=== PATIENT | female | born 1945 | race Caucasian/White ===

== ENCOUNTER 2017-04-30 12:49 | Outpatient (CLI) | payer MEDICARE, OTHER ==
[2015-05-13 11:42] VITALS: BP 125/70
--- NOTE | 2017-04-30 14:37 | Diagnostic Imaging Report ---
[facility] [address] [facility] [address] [address] Report Submission Date: Apr 30, 2017 1:34:03 PM CDT Patient Study Name: ELISHA BAÑUELOS Date: Apr 30, 2017 12:57:08 PM CDT Modality Type: CR Gender: F Description: CHEST : 43 Institution: Physician: GISELL Examination: PA and lateral chest. History: Evaluate lung scott. Findings: PA lateral chest demonstrate a hypoventilated inspiratory effort. Mild prominence of the cardiac and mediastinal with tortuosity of the thoracic aorta. Linear densities right lower lung. No effusion. No blunting of the costophrenic margins. Osseous structures are appropriate for age. 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 Impression: Right lung base scarring versus atelectasis. No effusion Electronically signed on Apr 30, 2017 1:34:03 PM CDT by: Hesham HURTADO
== END 2017-04-30 12:50 ==
LOC: RAD 12:49
PROVIDERS: ATTEND Family Medicine
DX: R06.00 Dyspnea, unspecified (principal)
CPT/HCPCS: 71020

== ENCOUNTER 2018-06-03 19:04 | Emergency (ER) | payer MEDICARE, OTHER ==
--- NOTE | 2018-06-03 19:18 | ED Physician Documentation ---
General Adult - HISTORIAN Historian: patient - HPI Stated Complaint: fall, head lac and hip pain Chief Complaint: Fall Onset: minutes (45) Timing: still present Severity: mild Further Comments: yes (per [facility] report no witness to the fall and they did find her on her left side and she was complaining of hip pain and head pain. She states that she fell after hearing a sound that made her jumpy. She states her left hip hurts and her head . She denies any other complaints) Last known Well Code/Unknown Code: Unknown - ROS CONST: no problems EYES/ENT: none CVS/RESP: none GI/: none MS/SKIN/LYMPH: none NEURO/PSYCH: headache. denies: fainting, dizziness - PAST HX Past History: other (history of a brain bleed, dementia, hypertension, hydorcephalus, hyperlipidemia, COPD ) Immunizations: tetanus Allergies/Adverse Reactions: Allergies Allergy/AdvReac Type Severity Reaction Status Date / Time No Known Allergies Allergy Verified 06/03/18 19:36 Home Medications: Ambulatory Orders Medication Instructions Recorded Acetaminophen [Tylenol] 325 mg PO Q4H PRN #0 tablet 05/13/15 Aspirin [Tato] 81 mg PO DAILY tab.chew 05/13/15 - SOCIAL HX Smoking History: non-smoker Alcohol Use: none Drug Use: none - FAMILY HX Family History: No - VITAL SIGNS Vital Signs: Vital Signs Temp Pulse Resp BP Pulse Ox 125/70 05/13/15 07:58 - REVIEWED ASSESSMENTS Nursing Assessment Reviewed: Yes Vitals Reviewed: Yes Procedures Wound Location: head Wound's Depth, Shape: superficial Wound Explored: clean Wound Repaired With: Dermabond Layer Closure?: No (1 cm lac ) Progress - Progress Progress: 2039: results discussed with pt and brother and they understand the plan agreeable DG ED Results Lab/Radiology - Radiology Radiology Impressions: FINDINGS: Left frontal lobe encephalomalacia is present. A ventriculostomy catheter is in place from the right parietal bone with its tip between the frontal horns of the lateral ventricles. The lateral ventricles not appear enlarged. There is mild to moderate cerebral atrophy. 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 Cerebellar atrophy is present. There is a right temporoparietal craniotomy defect. Visualized sinuses and mastoid air cells are clear. Right temporal lobe encephalomalacia is present. IMPRESSION: Right suprasellar aneurysm clip Right craniotomy A ventriculostomy catheter present with the tip between the frontal horns of the lateral ventricles. This catheter is not clearly in the ventricular system at the tip but the ventricles are nonenlarged Left frontal encephalomalacia. Is also right temporal encephalomalacia Cerebral and cerebellar atrophy No evidence of acute hemorrhage or edema Electronically signed on Jun 03, 2018 8:28:34 PM CDT by: Zev Hartmann Examination: Plain film pelvis/hips History: FALL, PT COMPLAINS OF LEFT HIP PAIN, BRUISING (Hx) Comparison exams: None provided Findings: 5 views of the pelvis and hips demonstrate normal cortical margins. No fracture no dislocation. Mild acetabular spurring. Lumbar spine degenerative changes. No soft tissue abnormality. Impression: Mild degenerative changes. No acute appearing osseous abnormality. Electronically signed on Jun 03, 2018 8:27:57 PM CDT by: Hesham Jones - Orders Orders: ED Orders Category Date Time Status IV Started NOW Care 06/03/18 19:16 Ordered BILAT HIPS 2V (W/PEL IF DONE) [RAD] Stat Exams 06/03/[address] BRAIN W/O CONTRAST Stat Exams 06/03/18 Ordered CBC/PLATELET/DIFF Stat Lab 06/03/18 19:15 Ordered CMP Stat Lab 06/03/18 19:15 Ordered General Adult Physical Exam - PHYSICAL EXAM GENERAL APPEARANCE: no distress EENT: eye inspection normal, ENT inspection normal, KIRT NECK: normal inspection RESPIRATORY: no resp distress, chest non-tender, breath sounds normal CVS: reg rate & rhythm, heart sounds normal, equal pulses ABDOMEN: soft, normal bowel sounds, no distension, non-tender BACK: normal inspection SKIN: warm/dry, normal color, other (laceration on left scalp ) EXTREMITIES: other (rotation and shortness noted on right leg. Pain with palpation and interview on left hip ) NEURO: oriented X3, sensation nml, mood/affect nml Discharge Clincal Impression: head injury Fall Qualifiers: Encounter type: initial encounter Qualified Code(s): W19.XXXA - Unspecified fall, initial encounter Referrals: Hair Mace MD [Primary Care Provider] - 2 Days Comments: 1. Monitor for any changes in her level of consciousness 2. Tylenol or Ibuprofen for pain as needed 3. Ice to scalp 4. Notify PCP of fall 5. Return to ER for any concerns Condition: Stable Disposition: 01 HOME, SELF-CARE Decision to Admit: NO Date of Decison to Admit: 06/03/18 Decision Time: 20:43
[2018-06-03] MEDS ORDERED: KETOROLAC TROMETHAMINE 30 MG/1ML VIAL IM ONE (20:32)
[2018-06-03 21:44] VITALS: BP 124/44
[2018-06-03 23:23] LABS: BASOPHILS % 0.4 (0.0-1.5); EOSINOPHILS % 2.7 % (0.0-6.8); MEAN CORPUSCULAR HEMOGLOBIN 28.4 pg (28.0-34.0); MEAN CORPUSCULAR VOLUME 90.6 fl (80.0-100.0); MONOCYTES % 6.4 % (0.0-11.0)
[2018-06-03 23:25] LABS: eGFR (African) > 60; eGFR (Non-African) > 60
--- NOTE | 2018-06-04 06:36 | Diagnostic Imaging Report ---
JUANITO PARKS [facility] [address] [facility] [address] [place], [place]. [address] Report Submission Date: Jun 03, 2018 8:27:57 PM CDT Patient Study Name: ELISHA BAÑUELOS Date: Jun 03, 2018 7:34:53 PM CDT Modality Type: DX Gender: F Description: PELVIS : 43 Institution: [facility] Physician: JUANITO PARKS Examination: Plain film pelvis/hips History: FALL, PT COMPLAINS OF LEFT HIP PAIN, BRUISING (Hx) Comparison exams: None provided Findings: 5 views of the pelvis and hips demonstrate normal cortical margins. No fracture no dislocation. Mild acetabular spurring. Lumbar spine degenerative changes. No soft tissue abnormality. Impression: Mild degenerative changes. No acute appearing osseous abnormality. Electronically signed on Jun 03, 2018 8:27:57 PM CDT by: Hesham HURTADO
--- NOTE | 2018-06-04 06:37 | Diagnostic Imaging Report ---
JUANITO PARKS [facility] [address] [facility] [address] [place], [place]. [address] Report Submission Date: Jun 03, 2018 8:28:34 PM CDT Patient Study Name: ELISHA BAÑUELOS Date: Jun 03, 2018 7:33:06 PM CDT Modality Type: CT\SR Gender: F Description: CT BRAIN W/O CONTRAST : 43 Institution: [facility] Physician: JUANITO PARKS CT brain noncontrast Date of study: June 03, 2018 CLINICAL HISTORY: FALL, HEAD LACERATION ON LEFT POSTERIOR OF HEAD, ANEURYSM IN 1996 (Hx) / ITS.REASON Fall head lac Note time : 06/03/2018 9:00:17 PM User : Parth Parmar FALL, LACERATION (DICOM Hx) / ITS.REASON Fall rotation and shortening of right = pain left (Pt comments) TECHNIQUE: 5 mm contiguous axial images of the brain, noncontrast. FINDINGS: Left frontal lobe encephalomalacia is present. A ventriculostomy catheter is in place from the right parietal bone with its tip between the frontal horns of the lateral ventricles. The lateral ventricles not appear enlarged. There is mild to moderate cerebral atrophy. 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 Cerebellar atrophy is present. There is a right temporoparietal craniotomy defect. Visualized sinuses and mastoid air cells are clear. Right temporal lobe encephalomalacia is present. IMPRESSION: Right suprasellar aneurysm clip Right craniotomy A ventriculostomy catheter present with the tip between the frontal horns of the lateral ventricles. This catheter is not clearly in the ventricular system at the tip but the ventricles are nonenlarged Left frontal encephalomalacia. Is also right temporal encephalomalacia Cerebral and cerebellar atrophy No evidence of acute hemorrhage or edema Electronically signed on Jun 03, 2018 8:28:34 PM CDT by: Zev HURTADO
== END 2018-06-03 20:50 | disposition home or self-care (01) ==
LOC: ED 19:04
DX: M25.552 Pain in left hip (principal); S01.01XA Laceration without foreign body of scalp, initial encounter; W19.XXXA Unspecified fall, initial encounter; Y92.129 Unspecified place in nursing home as the place of occurrence of the external cause; Y93.9 Activity, unspecified; Y99.9 Unspecified external cause status
CPT/HCPCS: 70450; 73521; 80053; 85025; J1885; 12001; 96372; S1016

== ENCOUNTER 2019-06-10 07:00 | Outpatient (CLI) | payer MEDICARE, OTHER ==
[2019-06-10 09:23] LABS: BASOPHILS % 0.3 % (0.0-1.5); NEUTROPHILS # 2.4 # k/uL (1.4-7.7); eGFR (Non-African) > 60
== END 2019-06-10 07:03 ==
LOC: LAB 07:00
PROVIDERS: ATTEND Family Medicine
DX: I10 Essential (primary) hypertension (principal); D50.0 Iron deficiency anemia secondary to blood loss (chronic); G40.109 Localization-related (focal) (partial) symptomatic epilepsy and epileptic syndromes with simple partial seizures, not intractable, without status epilepticus
CPT/HCPCS: 80053; 80156; 80177; 83540; 85025

== ENCOUNTER 2019-06-24 07:20 | Outpatient (CLI) | payer MEDICARE, OTHER | END 2019-06-24 07:23 | LOC: LAB 07:20 | PROVIDERS: ATTEND Family Medicine | DX: I10 Essential (primary) hypertension (principal); G91.2 (Idiopathic) normal pressure hydrocephalus | CPT/HCPCS: 80156; 80177 ==

== ENCOUNTER 2019-11-08 09:52 | Emergency (ER) | payer MEDICARE, OTHER ==
--- NOTE | 2019-11-08 10:21 | ED Physician Documentation ---
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 RN at [facility] reports patient has had several episode of syncope over the past 2 days associated with low blood pressure. She had an episode today with a blood pressure reported of 70 systolic. shelter also reports dark stools the past several days. Patient has dementia and is a poor historian. Patient states "yes" when asked if she has chest pain, shortness of breath and abdominal pain, but she answers "yes" to all questions. 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 denies: visual disturbance, nausea Character of Events(s): became unresponsive Duration of Loss of Consciousness: seconds Symptoms after Event: denies: confused after event, incontinent of urine, breathing stopped Location of Injury: none Associated Symptoms: other (hypotension) - ROS CONST: denies: recent illness EYES/ENT: denies: none GI/: black stools MS/SKIN/LYMPH: denies: leg swelling, rash NEURO/PSYCH: confusion (dementia) - PAST HX Cardiac Disease: none PE Risk Factors: none Other History: aneurysm (brain) Surgeries/Procedures: none Allergies/Adverse Reactions: Allergies Allergy/AdvReac Type Severity Reaction Status Date / Time No Known Allergies Allergy Verified 11/08/19 11:58 Home Medications: Ambulatory Orders Medication Instructions Recorded Acetaminophen [Tylenol] 325 mg PO Q4H PRN #0 tablet 05/13/15 Aspirin [Tato] 81 mg PO DAILY tab.chew 05/13/15 Docusate Sodium [Colace] 100 mg PO BID 11/08/19 Ferrous Sulfate [Feosol] 325 mg PO DAILY 11/08/19 Omeprazole 20 mg PO BID 11/08/19 - SOCIAL HX Smoking History: non-smoker Alcohol Use: none Drug Use: none - FAMILY HX Family History: none - VITAL SIGNS Vital Signs: Vital Signs Temp Pulse Resp BP Pulse Ox 98.2 F 63 15 152/68 91 L 11/08/19 09:52 11/08/19 09:52 11/08/19 09:52 11/08/19 09:52 11/08/19 09:52 - REVIEWED ASSESSMENTS Nursing Assessment Reviewed: Yes Vitals Reviewed: Yes Progress - Progress Progress: 1127 Patient's [id number] arrives, states patient's brother has hypotension in the morning too! - EKG/XRAY/CT EKG: NSR Comments: 1023 NSR, NO ST elevation ED Results Lab/Radiology - Lab Results Lab Results: Lab Results 11/08/19 11/08/19 10:20 10:20 WBC 5.00 K/ul K/ul (4.00-12.00) RBC 4.41 M/ul M/ul (3.90-5.20) Hgb 12.6 g/dL g/dL (11.5-16.0) Hct 38.2 % % (34.5-46.5) MCV 86.0 fl fl (80.0-100.0) MCH 28.7 pg pg (28.0-34.0) MCHC 33.1 g/dL g/dL (30.0-36.0) RDW 12.7 % % (11.3-14.3) Plt Count 183 K/mm3 K/mm3 (130-400) Neut % (Auto) 63.3 % % (39.0-79.0) Lymph % (Auto) 27.2 % % (16.0-50.0) Burnett % (Auto) 5.8 % % (0.0-11.0) Eos % (Auto) 3.4 % % (0.0-6.8) Baso % (Auto) 0.3 % % (0.0-1.5) Neut # (Auto) 3.2 # k/uL # k/uL (1.4-7.7) Lymph # (Auto) 1.4 # k/uL # k/uL (0.6-4.0) Burnett # (Auto) 0.3 # k/uL # k/uL (0.0-0.9) Eos # (Auto) 0.2 # k/uL # k/uL (0.0-0.6) Baso # (Auto) 0.0 # k/uL # k/uL (0.0-0.5) Sodium 143 mmol/L mmol/L (137-145) Potassium 3.8 mmol/L mmol/L (3.5-5.1) Chloride 106 mmol/L mmol/L (98-107) Carbon Dioxide 29 mmol/L mmol/L (22-30) Anion Gap 11.8 BUN 18 mg/dL H mg/dL (7-17) Creatinine 0.69 mg/dL mg/dL (0.52-1.04) Estimated Creat Clear 113 Est GFR ( Amer) > 60 (60 - ) Est GFR (Non-Af Amer) > 60 (60 - ) Glucose 115 mg/dL H mg/dL (74-106) Calcium 9.2 mg/dL mg/dL (8.4-10.2) Total Bilirubin 0.5 mg/dL mg/dL (0.2-1.3) AST 24 U/L U/L (15-46) ALT 18 U/L U/L (4-35) Alkaline Phosphatase 143 U/L H U/L (38-126) Troponin I < 0.012 ng/mL L ng/mL (0.012-0.034) NT-Pro-B Natriuret Pep 277.7 pg/mL pg/mL (15.0-450.0) Total Protein 7.1 g/dL g/dL (6.3-8.2) Albumin 4.0 g/dL g/dL (3.5-5.0) - Radiology Radiology Impressions: Report Submission Date: Nov 08, 2019 11:57:42 AM 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 The pulmonary vasculature is normal. No pleural effusion, pneumothorax or alveolar consolidation. Right midlung atelectasis scarring noted. Impression: No acute disease in the chest Electronically signed on Nov 08, 2019 11:57:42 AM ANALOG CIRCUIT DESIGNER by: Luis Sosa - Orders Orders: ED Orders Category Date Time Status Place IV Lock 1T Care 11/08/19 10:01 Active CHEST 1VIEW [RAD] Stat Exams 11/08/19 Completed CBC/PLATELET/DIFF Routine Lab 11/08/19 10:20 Completed CMP Routine Lab 11/08/19 10:20 Completed NT BNP Stat Lab 11/08/19 10:20 Completed TROPONIN I Stat Lab 11/08/19 10:20 Completed Oxygen Daily Oxygen 11/08/19 10:15 Ordered Syncope Physical Exam - Physical Exam General Appearance: no acute distress, alert EENT: PERRL Neck/Back: neck supple Respiratory: no resp distress, chest non-tender, breath sounds normal CVS: reg rate & rhythm, heart sounds normal Abdomen: non-tender, nml bowel sounds Skin: warm/dry, normal color Extremities: non-tender, no edema - Neuro/Psych Higher Functions: alert, no evidence of acute CVA, other (oriented to person only) Cranial Nerves: denies: facial droop Sensorimotor: nml reflexes Discharge Clincal Impression: Syncope due to orthostatic hypotension Referrals: Hair Mace MD [Primary Care Provider] - 2 Days Additional Instructions: 1. Dose Lisinopril 10mg daily at lunch time instead of in the AM 2. Drink plenty of fluids to maintain proper hydration. Avoid caffeine 3. Follow up with PCP within 4 days. Take blood pressure log to appointment for further evaluation/medication adjustment 4. Return to ER for new or worsening symptoms Condition: Stable Disposition: 01 HOME, SELF-CARE Decision to Admit: NO Date of Decison to Admit: 11/08/19 Decision Time: 12:14
[2019-11-08 10:45] LABS: BASOPHILS % 0.3 % (0.0-1.5); NEUTROPHILS # 3.2 # k/uL (1.4-7.7)
[2019-11-08 10:53] LABS: eGFR (Non-African) > 60
--- NOTE | 2019-11-08 12:02 | Diagnostic Imaging Report ---
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 The pulmonary vasculature is normal. No pleural effusion, pneumothorax or a lveolar consolidation. Right midlung atelectasis scarring noted. Impression: No acute disease in the chest Read by: Dr. Luis Sosa Transcribed by: Transcribed Date: Electronically signed by: Dr. Luis Sosa Date signed: 11/08/2019 12:01:37 PM
[2019-11-08 13:02] VITALS: BP 156/83
== END 2019-11-08 12:41 | disposition home or self-care (01) ==
LOC: ED 09:52
DX: I95.1 Orthostatic hypotension (principal)
CPT/HCPCS: 80053; 83880; 84484; 85025; 93005; 99282; 99284